=== PATIENT | male | born 1950 | race Caucasian/White ===

== ENCOUNTER → 2017-09-14 | Outpatient (CLI) | payer MEDICARE ==
[~2017-09-14] MED LIST: CEPH-368 PO; FLEC100T PO; REGADENOSON 0.4 MG/5 ML SYRINGE ONE
== END | disposition home or self-care (01) ==
LOC: CFH 08:16
PROVIDERS: ATTEND Internal Medicine Cardiovascular Disease
DX: I48.91 Unspecified atrial fibrillation (principal)
CPT/HCPCS: J2785

== ENCOUNTER → 2017-09-16 | Outpatient (CLI) | payer MEDICARE ==
[~2017-09-16] MED LIST changes: +OMNIPAQUE 350 MG/ML, 100ML BOTTLE ONE; -REGADENOSON 0.4 MG/5 ML SYRINGE ONE
== END | disposition home or self-care (01) ==
LOC: CFH 08:27
PROVIDERS: ATTEND Internal Medicine
DX: K76.0 Fatty (change of) liver, not elsewhere classified (principal); N40.0 Benign prostatic hyperplasia without lower urinary tract symptoms; M85.88 Other specified disorders of bone density and structure, other site; I48.0 Paroxysmal atrial fibrillation; M19.90 Unspecified osteoarthritis, unspecified site; R14.0 Abdominal distension (gaseous)
CPT/HCPCS: 74177; 82565; Q9967

== ENCOUNTER 2017-10-29 10:02 | Day surgery (SDC) | payer MEDICARE ==
[~2017-10-29] VITALS: Ht 190.5 cm; Wt 63.9 kg
[~2017-10-29 10:02] MED LIST changes: +AMIO100T4 PO; +AMIO200T42 PO; +CALC667C PO; -OMNIPAQUE 350 MG/ML, 100ML BOTTLE ONE
[2017-10-29] MEDS ORDERED: SODIUM CHLORIDE 0.9% 1,000 ML IV SCH (10:34)
[2017-10-29 10:36] VITALS: BP 144/79
[2017-10-29] MEDS ORDERED: PLEASE ENTER HEIGHT AND WEIGHT MC SCH (11:00)
[2017-10-29] MEDS ORDERED: FLUMAZENIL 0.1 MG/1 ML, 5ML ONE (11:49)
[2017-10-29] MEDS ORDERED: MIDAZOLAM 1 MG/ML, 5ML ONE (11:49)
[2017-10-29] MEDS ORDERED: FENTANYL PF 100 MCG/2ML ONE ×2 (11:49)
[2017-10-29] MEDS ORDERED: NALOXONE 1 MG/ML, 2ML ONE (11:50)
[2017-10-29] MEDS ORDERED: LIDOCAINE-MPF 2%, 2ML ONE (11:56)
== END 2017-10-29 14:15 | disposition home or self-care (01) ==
LOC: RAD 10:02
PROVIDERS: ATTEND Radiology Diagnostic Radiology
DX: Z45.2 Encounter for adjustment and management of vascular access device (principal); N18.9 Chronic kidney disease, unspecified; I48.91 Unspecified atrial fibrillation; Z95.0 Presence of cardiac pacemaker; Z98.890 Other specified postprocedural states; Z88.1 Allergy status to other antibiotic agents; Z88.8 Allergy status to other drugs, medicaments and biological substances
CPT/HCPCS: 36589; 77001; 99156; J2250; J3010; J3490; J7030; J2310

== ENCOUNTER → 2017-11-12 | Outpatient (CLI) | payer MEDICARE | END | disposition home or self-care (01) | LOC: RAD 13:08 | PROVIDERS: ATTEND Nurse Practitioner Primary Care | DX: J90 Pleural effusion, not elsewhere classified (principal); J43.9 Emphysema, unspecified | CPT/HCPCS: 71046 ==

== ENCOUNTER 2018-02-01 15:03 | Emergency (ER) | payer MEDICARE ==
[~2018-02-01] VITALS: Ht 190.5 cm; Wt 68.3 kg
[2018-02-01 15:08] VITALS: BP 134/90
[2018-02-01] MEDS ORDERED: LIDOCAINE-MPF 1%, 5ML ONE (15:29)
[2018-02-01] MEDS ORDERED: LIDOCAINE-MPF 1%, 5ML INFIL ONE (15:30)
== END 2018-02-01 16:37 | disposition home or self-care (01) ==
LOC: ED 15:55
DX: S31.119D Laceration without foreign body of abdominal wall, unspecified quadrant without penetration into peritoneal cavity, subsequent encounter (principal); R00.0 Tachycardia, unspecified; I48.91 Unspecified atrial fibrillation; Z95.0 Presence of cardiac pacemaker
CPT/HCPCS: 99281

== ENCOUNTER → 2018-06-14 | Outpatient (CLI) | payer MEDICARE | END | disposition home or self-care (01) | LOC: CFH 08:28 | PROVIDERS: ATTEND Internal Medicine Cardiovascular Disease | DX: I08.1 Rheumatic disorders of both mitral and tricuspid valves (principal); I48.91 Unspecified atrial fibrillation; Z95.0 Presence of cardiac pacemaker | CPT/HCPCS: 93306 ==

== ENCOUNTER 2018-09-21 12:15 | Outpatient (CLI) | payer MEDICARE | END 2018-09-21 23:59 | disposition home or self-care (01) | LOC: CFH 12:15 | PROVIDERS: ATTEND Internal Medicine Cardiovascular Disease | DX: I48.0 Paroxysmal atrial fibrillation (principal) | CPT/HCPCS: 78452; 93017; A9502; J2785 ==

== ENCOUNTER 2020-06-07 14:44 | Outpatient (CLI) | payer MEDICARE | END 2020-06-07 23:59 | disposition home or self-care (01) | LOC: CFH 14:44 | PROVIDERS: ATTEND Internal Medicine Cardiovascular Disease | DX: I08.8 Other rheumatic multiple valve diseases (principal); I42.8 Other cardiomyopathies; I48.91 Unspecified atrial fibrillation | CPT/HCPCS: 93306 ==